=== PATIENT | female | born 1930 | race Caucasian/White ===

== ENCOUNTER 2020-09-18 18:00 | Inpatient (IN) | payer MEDICARE, OTHER ==
[2020-09-18] MEDS ORDERED: Ondansetron 4 MG Tab.DIS PO PRN (18:10)
[2020-09-18] MEDS ORDERED: Sodium Chloride 0.9% 10 ML Syringe FLUSH PRN (18:10)
--- NOTE | 2020-09-18 18:28 | PCM.HP.2 ---
H&P History of Present Illness - General Date of Service: 09/18/20 Admit Problem/Dx: Admission Diagnosis/Problem Admission Diagnosis/Problem Pneumonia, healthcare acquired, Hypoxia, DERRICK, Dehydration, Weakness Source of Information: Longterm Records, Other (KIERA Mckeon attending her) History Limitations: Reports: Altered Mental Status, Respiratory Distress - History of Present Illness Initial Comments - Free Text/Narative: Nikki is a resident of [facility] in [place]. The past couple of days she has become more weak, drowsy, congested to chest. She had an emesis today. She is febrile. Staff are using a [employer] Lift for transfers which is new for her. The residential applied oxygen at 2L/ [place]. Pulse oxy in the clinic is 93%. Nikki is lethargic and not verbal in the clinic. Breathing is labored and rhonchi throughout. Chest x-ray is negative. Leukocytosis WBC 18,000. Creat 1.64, GFR 30, Na 135, K 4.1. Lactic Acid 2.1. Blood cultures pending. Baseline she has Alzheimer's dementia and is quite talkative, essential hypertension, hypothyroidism, GERD, CKD stage IIIa, Iron Def Anemia. Typically she is able to transfer with 1 and uses a wheelchair. She is a Code Level II. She has had 2 doses of covid vaccination. Next of kin, son, Juan Manuel Gerard, was contacted regarding admission and her condition. Onset of Symptoms: Reports: Gradual Symptom Onset Date: 09/17/20 Duration of Symptoms: Reports: Day(s):, Getting Worse Location: Reports: Chest Associated Symptoms: Reports: Cough, Fever/Chills, Loss of Appetite, Malaise, Nausea/Vomiting, Shortness of Breath, Weakness - Related Data Home Medications: Home Meds Acetaminophen [Tylenol] 650 mg PO Q6H PRN 09/18/20 [History] Ergocalciferol (Vitamin D2) [Vitamin D2] 1.25 mg PO DAILY 09/18/20 [History] Escitalopram Oxalate [Lexapro] 10 mg PO DAILY 09/18/20 [History] Lansoprazole [Prevacid] 30 mg PO DAILY 09/18/20 [History] Levothyroxine [Synthroid] 100 mcg PO ACBREAKFAST 09/18/20 [History] amLODIPine Besylate [Amlodipine Besylate] 5 mg PO DAILY 09/18/20 [History] bisacodyL [Bisacodyl] 5 mg PO DAILY PRN 09/18/20 [History] Past Medical History Cardiovascular History: Reports: Hypertension Genitourinary History: Reports: Acute Renal Failure, Chronic Renal Insuffiency Psychiatric History: Reports: Alzheimers Disease, Dementia Endocrine/Metabolic History: Reports: Hypothyroidism, Obesity/BMI 30+, Other (See Below) (hyperlipidemia) Hematologic History: Reports: Anemia, Iron Deficiency Social & Family History - Living Situation & Occupation Living situation: Reports: Occupation: Retired (Next of kin is sonJuan Manuel, (cell). She resides at [facility]) H&P Review of Systems - Review of Systems: Review Of Systems: Unable To Obtain (lethargy) Reason Not Obtained: lethargy Exam - Exam Exam: See Below - Exam Quality Assessment: Supplemental Oxygen General: Moderate Distress, Lethargic. No: Sedated HEENT: Conjunctiva Clear, Hearing Intact, Mucosa Moist & [place], TMs Clear Neck: Supple, Trachea Midline, +2 Carotid Pulse wo Bruit Lungs: Rhonchi Cardiovascular: Regular Rate, Regular Rhythm, Normal S1, Normal S2 GI/Abdominal Exam: Normal Bowel Sounds, Soft, Non-Tender Extremities: Normal Inspection, No Pedal Edema Skin: Warm, Dry Neuro Extensive - Mental Status: Inattentive - Patient Data Lab Results Last 24 hrs: Laboratory Results - last 24 hr 09/18/20 Range/Units 16:54 Lactic Acid 2.1 H* (0.4-2.0) mmol/L - Problem List (1) Pneumonia SNOMED Code(s): 051781903 ICD Code: J18.9 - PNEUMONIA, UNSPECIFIED ORGANISM Status: Acute Current Visit: Yes Qualifiers: Laterality: unspecified laterality (2) Hypoxia SNOMED Code(s): 487208987 ICD Code: R09.02 - HYPOXEMIA Status: Acute Current Visit: Yes (3) DERRICK (acute kidney injury) SNOMED Code(s): 82835588, 98155748 ICD Code: N17.9 - ACUTE KIDNEY FAILURE, UNSPECIFIED Status: Acute Current Visit: Yes (4) Weakness SNOMED Code(s): 96396062 ICD Code: R53.1 - WEAKNESS Status: Acute Current Visit: Yes (5) Lactic acid acidosis SNOMED Code(s): 83137188 ICD Code: E87.2 - ACIDOSIS Status: Acute Current Visit: Yes (6) Dehydration, mild SNOMED Code(s): 5677865008374 ICD Code: E86.0 - DEHYDRATION Status: Acute Current Visit: Yes Problem List Initiated/Reviewed/Updated: Yes Orders Last 24hrs: Active Orders 24 hr Category Date Time Status Patient Status [ADT] Routine ADT 09/18/20 18:10 Ordered Bedrest Bedside Commode [RC] ASDIRECTED Care 09/18/20 18:10 Ordered Dietary Supplements [RC] BIDMEALS Care 09/18/20 18:20 Ordered Height and Weight [RC] DAILY Care 09/18/20 18:10 Ordered Intake and Output [RC] QSHIFT Care 09/18/20 18:13 Ordered Oxygen Therapy [RC] PRN Care 09/18/20 18:10 Ordered Pulse Oximetry [RC] CONTINUOUS Care 09/18/20 18:13 Ordered VTE/DVT Education [RC] PER UNIT ROUTINE Care 09/18/20 18:10 Ordered Vital Signs [RC] Q4H Care 09/18/20 18:10 Ordered OT Evaluation and Treatment [CONS] Routine Cons 09/18/20 18:10 Ordered PT Evaluation and Treatment [CONS] Routine Cons 09/18/20 18:10 Ordered EXTENDED DAY TEACHER Evaluation and Treatment [CONS] Routine Cons 09/18/20 18:10 Ordered Nothing per Oral Now Diet [DIET] Diet 09/18/20 Dinner Ordered Chest 1V Frontal [CR] AM Exams 09/19/20 05:11 Ordered BASIC METABOLIC PANEL,BMP [CHEM] AM Lab 09/19/20 05:11 Ordered CBC WITH AUTO DIFF [HEME] AM Lab 09/19/20 05:11 Ordered CULTURE BLOOD [BC] Stat Lab 09/18/20 18:16 Ordered CULTURE BLOOD [BC] Stat Lab 09/18/20 18:16 Ordered LACTATE SEPSIS W/ REFLEX [CHEM] Routine Lab 09/18/20 20:30 Ordered UA W/MICROSCOPIC [URIN] Stat Lab 09/18/20 18:10 Ordered Acetaminophen [TylenoL] Med 09/18/20 18:10 Ordered 650 mg PO Q4H PRN Ciprofloxacin in D5W [Cipro in D5W 400 MG/200 ML] 400 Med 09/18/20 18:30 Ordered mg Premix Bag 1 bag IV Q12H Heparin Sodium Med 09/18/20 18:15 Ordered 5,000 units SUBCUT Q8H Ondansetron [Zofran ODT] Med 09/18/20 18:10 Ordered 4 mg PO Q4H PRN Piperacillin/Tazobactam [Zosyn] 4.5 gm Med 09/18/20 18:30 Ordered Sodium Chloride 0.9% [Normal Saline] 100 ml IV Q6H Sodium Chloride 0.9% @ 100 MLS/HR(1000ml) Med 09/18/20 18:30 Ordered Sodium Chloride 0.9% [Normal Saline] 1,000 ml IV ASDIRECTED Sodium Chloride 0.9% [Saline Flush] Med 09/18/20 18:10 Ordered 10 ml FLUSH ASDIRECTED PRN VANCOmycin 1.5 GM/300 ML 1.5 gm Med 09/18/20 18:30 Ordered Premix Bag 1 bag IV Q12H Blood Culture x2 Reflex Set [OM.PC] Stat Oth 09/18/20 18:10 Ordered Peripheral IV Insertion Adult [OM.PC] Routine Oth 09/18/20 18:10 Ordered Resuscitation Status Routine Resus Stat 09/18/20 18:10 Ordered Medication Orders Acetaminophen (Acetaminophen 325 Mg Tab) 650 mg PO Q4H PRN PRN Reason: Pain (Mild 1-3)/fever Heparin Sodium (Porcine) (Heparin Sodium 5,000 Units/Ml Vial) 5,000 units SUBCUT Q8H SOTERO Ondansetron HCl (Ondansetron 4 Mg Tab.Dis) 4 mg PO Q4H PRN PRN Reason: nausea, able to take PO Sodium Chloride (Sodium Chloride 0.9% 10 Ml Syringe) 10 ml FLUSH ASDIRECTED PRN PRN Reason: Keep Vein Open Assessment: 1. HCA Pneumonia 2. Hypoxia 3. DERRICK 4. Mild dehydration 5. Lactic Acid acidosis. Plan: She is admitted to Acute Care for HCA pneumonia and she is started on IV Zosyn, Vancomycin, and Cipro. She will get IV fluids for dehydration. Speech Therapy/ PT/ OT to evaluate and treat. Bedside evaluation of swallowing. She is on oxygen at 2L/ nc. We will repeat CXR and lab in the morning. Check lactic acid in [address] Hazel to assume care in morning. DVT prophylaxis of Heparin SQ due to DERRICK. She is a Code Level II. DNR/ DNI. - Mortality Measure Prognosis:: Good
[2020-09-18] MEDS ORDERED: Piperacillin/Tazobactam 4.5 GM in Sodium Chloride 0.9% 100 ML IV SCH (18:30)
[2020-09-18] MEDS ORDERED: VANCOmycin 1.5 GM/300 ML 1.5 GM in Premix Bag 1 BAG IV SCH (18:30)
[2020-09-18] MEDS ORDERED: Ciprofloxacin in D5W 400 MG in Premix Bag 1 BAG IV ONE ×2 (19:15)
[2020-09-18] MEDS ORDERED: Ciprofloxacin in D5W 200 ML ONE (19:37)
[2020-09-18] MEDS: Sodium Chloride 0.9% 1,000 ML IV SCH (19:42)
[2020-09-18] MEDS ORDERED: Bisacodyl 5 MG Tab PO PRN (19:58)
[2020-09-18] MEDS ORDERED: Piperacillin/Tazobactam 4.5 GM in Sodium Chloride 0.9% 100 ML IV ONE ×4 (21:00)
[2020-09-18] MEDS ORDERED: VANCOmycin 1.5 GM/300 ML 1.5 GM in Premix Bag 1 BAG IV ONE (23:00)
[2020-09-19] MEDS ORDERED: VANCOmycin 1.5 GM/300 ML 300 ML IV ONE (00:15)
[2020-09-19] MEDS: Piperacillin/Tazobactam 3.375 GM in Sodium Chloride 0.9% 100 ML IV SCH ×3 (05:27→21:52)
[2020-09-19] MEDS: Acetaminophen 325 MG Tab PO PRN (05:29)
[2020-09-19] MEDS: Pantoprazole 40 MG Tab.CR PO SCH (06:39)
[2020-09-19] MEDS: Levothyroxine 100 MCG Tab PO SCH (06:39)
[2020-09-19 08:04] LABS: ANION GAP 16.8 mmol/L (5-15)
[2020-09-19] MEDS: amLODIPine 5 MG Tab PO SCH (08:13)
[2020-09-19] MEDS: Citalopram 20 MG Tab PO SCH (08:13)
[2020-09-19] MEDS ORDERED: Heparin Sodium 5,000 Units/ML Vial SUBCUT ONE (08:30)
--- NOTE | 2020-09-19 09:08 | PCM.PN ---
- General Info Date of Service: 09/19/20 Admission Dx/Problem (Free Text): Admission Diagnosis/Problem Admission Diagnosis/Problem Pneumonia, healthcare acquired, Hypoxia, DERRICK, Dehydration, Weakness Subjective Update: Nikki Gerard is an 89yoF with a PMH of HTN, hypothyroidism, alzheimers, CKD stage 3, and Fe-def anemia who was admitted to on 09/18/20 for suspected pneumonia. She hadn't been feeling well for a couple days prior to admission and on the day of admission nursing had noted her to be more lethargic, coughing, and having fever. She came into the clinic for an evaluation was found to be quite lethargic, febrile, hypoxic requiring 3 L remaining above 90%, and laboratory evaluation demonstrated leukocytosis with a left shift, and DERRICK (creatinine 1.64 up from baseline of 1.1), and mild hyponatremia. She was admitted to the hospital and was initiated on therapy for healthcare associated pneumonia. Overnight she has remained fairly stable. Vital signs are stable although she did spike a fever back up to 100 this morning. Her labs are improving slightly. She does alert to questioning but does not really answer questions. At baseline this patient is usually happy and very talkative although nonsensically rambles. Nursing did inform that the patient did not pass her swallow study; ST will reassess tomorrow. - Review of Systems Systems Review Comment:: Patient is unable to answer ROS: groggy and will only open eyes, dementia at baseline would make this hard as well. - Patient Data Vitals - Most Recent: Last Vital Signs Temp 100.8 F H 09/19/20 05:45 Pulse 83 09/19/20 05:45 Resp BP 145/55 H 09/19/20 05:45 Pulse Ox 96 09/19/20 08:00 Weight - Most Recent: 164 lb 11 oz I&O - Last 24 Hours: Intake & Output 09/18/20 09/19/20 09/19/20 22:59 06:59 14:59 Intake Total 1600 Balance 1600 Lab Results Last 24 Hours: Laboratory Results - last 24 hr 09/18/20 09/18/20 09/18/20 Range/Units 16:54 20:15 21:01 WBC (4.0-10.0) x10^3/uL RBC (4.00-5.50) x10^6/uL Hgb (12.0-16.0) g/dL Hct (33.0-47.0) % MCV (78.0-93.0) fL MCH (26.0-32.0) pg MCHC (32.0-36.0) g/dL RDW Coeff of Jazmine (10.0-15.0) % Plt Count (130-400) x10^3/uL Add Manual Diff Neutrophils % (Manual) (50-80) % Band Neutrophils % (0-6) % Lymphocytes % (Manual) (25-50) % Monocytes % (Manual) (2-11) % Eosinophils % (Manual) (0-4) % Platelet Estimate Anisocytosis Sodium (136-145) mmol/L Potassium (3.5-5.1) mmol/L Chloride (98-107) mmol/L Carbon Dioxide (21-32) mmol/L Anion Gap (5-15) mmol/L BUN (7-18) mg/dL Creatinine (0.55-1.02) mg/dL Est Cr Clr Drug Dosing mL/min Estimated GFR (MDRD) Glucose (70-99) mg/dL Lactic Acid Cancelled 1.6 Calcium (8.5-10.1) mg/dL Urine Color Dark yellow H (YELLOW) Urine Appearance Slightly cloudy H (CLEAR) Urine pH 5.0 (5.0-8.0) Ur Specific Gilbert >=1.030 Urine Protein >=300 H (NEGATIVE) mg/dL Urine Glucose (UA) Negative (NEGATIVE) mg/dL Urine Ketones Negative (NEGATIVE) mg/dL Urine Occult Blood Trace-intact H (NEGATIVE) Urine Nitrite Negative (NEGATIVE) Urine Bilirubin Negative (NEGATIVE) Urine Urobilinogen 0.2 (0.2) EU/dL Ur Leukocyte Esterase Trace H (NEGATIVE) Urine RBC 5-10 H (NOT SEEN) /HPF Urine WBC 10-20 H (NOT SEEN) /HPF Ur Squamous Epith Cells Few H (NOT SEEN) /HPF Urine Bacteria Moderate H (NOT SEEN) /HPF Urine Mucus Few H (NOT SEEN) /LPF 09/19/20 09/19/20 Range/Units 06:27 06:27 WBC 16.7 H (4.0-10.0) x10^3/uL RBC 3.84 L (4.00-5.50) x10^6/uL Hgb 9.9 L (12.0-16.0) g/dL Hct 31.6 L (33.0-47.0) % MCV 82.3 (78.0-93.0) fL MCH 25.8 L (26.0-32.0) pg MCHC 31.3 L (32.0-36.0) g/dL RDW Coeff of Jazmine 16.6 H (10.0-15.0) % Plt Count 289 (130-400) x10^3/uL Add Manual Diff Yes Neutrophils % (Manual) 79 (50-80) % Band Neutrophils % 2 (0-6) % Lymphocytes % (Manual) 11 L (25-50) % Monocytes % (Manual) 7 (2-11) % Eosinophils % (Manual) 1 (0-4) % Platelet Estimate Adequate Anisocytosis 1+ slight H Sodium 136 (136-145) mmol/L Potassium 3.8 (3.5-5.1) mmol/L Chloride 100 (98-107) mmol/L Carbon Dioxide 23 (21-32) mmol/L Anion Gap 16.8 H (5-15) mmol/L BUN 30 H (7-18) mg/dL Creatinine 1.5 H (0.55-1.02) mg/dL Est Cr Clr Drug Dosing 22.39 mL/min Estimated GFR (MDRD) 33 Glucose 144 H (70-99) mg/dL Lactic Acid Calcium 7.6 L (8.5-10.1) mg/dL Urine Color (YELLOW) Urine Appearance (CLEAR) Urine pH (5.0-8.0) Ur Specific Gilbert Urine Protein (NEGATIVE) mg/dL Urine Glucose (UA) (NEGATIVE) mg/dL Urine Ketones (NEGATIVE) mg/dL Urine Occult Blood (NEGATIVE) Urine Nitrite (NEGATIVE) Urine Bilirubin (NEGATIVE) Urine Urobilinogen (0.2) EU/dL Ur Leukocyte Esterase (NEGATIVE) Urine RBC (NOT SEEN) /HPF Urine WBC (NOT SEEN) /HPF Ur Squamous Epith Cells (NOT SEEN) /HPF Urine Bacteria (NOT SEEN) /HPF Urine Mucus (NOT SEEN) /LPF Med Orders - Current: Current Medications Acetaminophen (Acetaminophen 325 Mg Tab) 650 mg PO Q4H PRN PRN Reason: Pain (Mild 1-3)/fever Amlodipine Besylate (Amlodipine 5 Mg Tab) 5 mg PO DAILY [facility] Last Admin: 09/19/20 08:13 Dose: Not Given Documented by: Bisacodyl (Bisacodyl 5 Mg Tab) 5 mg PO DAILY PRN PRN Reason: Constipation Citalopram Hydrobromide (Citalopram 20 Mg Tab) 20 mg PO DAILY [facility] Last Admin: 09/19/20 08:13 Dose: Not Given Documented by: Ergocalciferol (Ergocalciferol (Vitamin D2) 1.25 Mg Cap) 1.25 mg PO Fr@0800 [facility] Heparin Sodium (Porcine) (Heparin Sodium 5,000 Units/Ml Vial) 5,000 units SUBCUT Q8H SOTERO Sodium Chloride (Normal Saline) 1,000 mls @ 100 mls/hr IV ASDIRECTED [facility] Last Admin: 09/18/20 19:42 Dose: 100 mls/hr Documented by: Ciprofloxacin/Dextrose 400 mg/ (Premix) 200 mls @ 200 mls/hr IV Q12H [facility] Piperacillin Sod/Tazobactam (Sod 3.375 gm/ Sodium Chloride) 100 mls @ 25 mls/hr IV Q8H [facility] Last Admin: 09/19/20 05:27 Dose: 25 mls/hr Documented by: Levothyroxine Sodium (Levothyroxine 100 Mcg Tab) 100 mcg PO ACBREAKFAST [facility] Last Admin: 09/19/20 06:39 Dose: Not Given Documented by: Ondansetron HCl (Ondansetron 4 Mg Tab.Dis) 4 mg PO Q4H PRN PRN Reason: nausea, able to take PO Pantoprazole Sodium (Pantoprazole 40 Mg Tab.Cr) 40 mg PO ACBREAKFAST [facility] Last Admin: 09/19/20 06:39 Dose: Not Given Documented by: Sodium Chloride (Sodium Chloride 0.9% 10 Ml Syringe) 10 ml FLUSH ASDIRECTED PRN PRN Reason: Keep Vein Open Vancomycin HCl (Pharmacy To Dose - Vancomycin) 1 dose .XX ASDIRECTED [facility] Discontinued Medications Heparin Sodium (Porcine) (Heparin Sodium 5,000 Units/Ml Vial) 5,000 units SUBCUT ONETIME ONE Stop: 09/19/20 08:31 Piperacillin Sod/Tazobactam (Sod 4.5 gm/ Sodium Chloride) 100 mls @ 200 mls/hr IV Q6H [facility] Last Admin: 09/18/20 23:58 Dose: Not Given Documented by: Ciprofloxacin/Dextrose 400 mg/ (Premix) 200 mls @ 200 mls/hr IV ONETIME ONE Stop: 09/18/20 20:14 Last Admin: 09/18/20 19:42 Dose: 200 mls/hr Documented by: Ciprofloxacin/Dextrose (Cipro In D5w 400 Mg/200 Ml) Confirm Administered Dose 200 mls @ as directed .ROUTE .STK-MED ONE Stop: 09/18/20 19:38 Last Admin: 09/18/20 20:43 Dose: Not Given Documented by: Piperacillin Sod/Tazobactam (Sod 4.5 gm/ Sodium Chloride) 100 mls @ 25 mls/hr IV ONETIME ONE Stop: 09/19/20 00:59 Piperacillin Sod/Tazobactam (Sod 4.5 gm/ Sodium Chloride) 100 mls @ 200 mls/hr IV ONETIME ONE Stop: 09/18/20 21:29 Last Admin: 09/18/20 21:56 Dose: 200 mls/hr Documented by: Vancomycin HCl 1.5 gm/ Premix 300 mls @ 200 mls/hr IV ONETIME ONE Stop: 09/19/20 00:29 Last Admin: 09/18/20 23:51 Dose: 200 mls/hr Documented by: Vancomycin HCl (Vancomycin 1.5 Gm/300 Ml) 300 mls @ 200 mls/hr IV ONETIME ONE Stop: 09/19/20 01:44 Last Admin: 09/19/20 00:13 Dose: 200 mls/hr Documented by: - Exam Quality Assessment: Supplemental Oxygen (2L with sats at 97%) General: No Acute Distress, Lethargic HEENT: Mucous Membr. Moist/[place] Neck: Supple Lungs: Rhonchi (may be transmitted upper airway sounds) Cardiovascular: Regular Rate, Regular Rhythm GI/Abdominal Exam: Normal Bowel Sounds, Soft, Non-Tender Extremities: Normal Inspection, Non-Tender, No Pedal Edema Skin: Warm, Dry, Intact - Patient Data Lab Results Last 24 hrs: Laboratory Results - last 24 hr 09/18/20 09/18/20 09/18/20 Range/Units 16:54 20:15 21:01 WBC (4.0-10.0) x10^3/uL RBC (4.00-5.50) x10^6/uL Hgb (12.0-16.0) g/dL Hct (33.0-47.0) % MCV (78.0-93.0) fL MCH (26.0-32.0) pg MCHC (32.0-36.0) g/dL RDW Coeff of Jazmine (10.0-15.0) % Plt Count (130-400) x10^3/uL Add Manual Diff Neutrophils % (Manual) (50-80) % Band Neutrophils % (0-6) % Lymphocytes % (Manual) (25-50) % Monocytes % (Manual) (2-11) % Eosinophils % (Manual) (0-4) % Platelet Estimate Anisocytosis Sodium (136-145) mmol/L Potassium (3.5-5.1) mmol/L Chloride (98-107) mmol/L Carbon Dioxide (21-32) mmol/L Anion Gap (5-15) mmol/L BUN (7-18) mg/dL Creatinine (0.55-1.02) mg/dL Est Cr Clr Drug Dosing mL/min Estimated GFR (MDRD) Glucose (70-99) mg/dL Lactic Acid Cancelled 1.6 Calcium (8.5-10.1) mg/dL Urine Color Dark yellow H (YELLOW) Urine Appearance Slightly cloudy H (CLEAR) Urine pH 5.0 (5.0-8.0) Ur Specific Gilbert >=1.030 Urine Protein >=300 H (NEGATIVE) mg/dL Urine Glucose (UA) Negative (NEGATIVE) mg/dL Urine Ketones Negative (NEGATIVE) mg/dL Urine Occult Blood Trace-intact H (NEGATIVE) Urine Nitrite Negative (NEGATIVE) Urine Bilirubin Negative (NEGATIVE) Urine Urobilinogen 0.2 (0.2) EU/dL Ur Leukocyte Esterase Trace H (NEGATIVE) Urine RBC 5-10 H (NOT SEEN) /HPF Urine WBC 10-20 H (NOT SEEN) /HPF Ur Squamous Epith Cells Few H (NOT SEEN) /HPF Urine Bacteria Moderate H (NOT SEEN) /HPF Urine Mucus Few H (NOT SEEN) /LPF 09/19/20 09/19/20 Range/Units 06:27 06:27 WBC 16.7 H (4.0-10.0) x10^3/uL RBC 3.84 L (4.00-5.50) x10^6/uL Hgb 9.9 L (12.0-16.0) g/dL Hct 31.6 L (33.0-47.0) % MCV 82.3 (78.0-93.0) fL MCH 25.8 L (26.0-32.0) pg MCHC 31.3 L (32.0-36.0) g/dL RDW Coeff of Jazmine 16.6 H (10.0-15.0) % Plt Count 289 (130-400) x10^3/uL Add Manual Diff Yes Neutrophils % (Manual) 79 (50-80) % Band Neutrophils % 2 (0-6) % Lymphocytes % (Manual) 11 L (25-50) % Monocytes % (Manual) 7 (2-11) % Eosinophils % (Manual) 1 (0-4) % Platelet Estimate Adequate Anisocytosis 1+ slight H Sodium 136 (136-145) mmol/L Potassium 3.8 (3.5-5.1) mmol/L Chloride 100 (98-107) mmol/L Carbon Dioxide 23 (21-32) mmol/L Anion Gap 16.8 H (5-15) mmol/L BUN 30 H (7-18) mg/dL Creatinine 1.5 H (0.55-1.02) mg/dL Est Cr Clr Drug Dosing 22.39 mL/min Estimated GFR (MDRD) 33 Glucose 144 H (70-99) mg/dL Lactic Acid Calcium 7.6 L (8.5-10.1) mg/dL Urine Color (YELLOW) Urine Appearance (CLEAR) Urine pH (5.0-8.0) Ur Specific Gilbert Urine Protein (NEGATIVE) mg/dL Urine Glucose (UA) (NEGATIVE) mg/dL Urine Ketones (NEGATIVE) mg/dL Urine Occult Blood (NEGATIVE) Urine Nitrite (NEGATIVE) Urine Bilirubin (NEGATIVE) Urine Urobilinogen (0.2) EU/dL Ur Leukocyte Esterase (NEGATIVE) Urine RBC (NOT SEEN) /HPF Urine WBC (NOT SEEN) /HPF Ur Squamous Epith Cells (NOT SEEN) /HPF Urine Bacteria (NOT SEEN) /HPF Urine Mucus (NOT SEEN) /LPF Result Diagrams: 09/19/20 06:27 09/19/20 06:27 Sepsis Event Note - Evaluation Sepsis Screening Result: No Definite Risk - Focused Exam Vital Signs: Vital Signs Temp Pulse BP Pulse Ox Pulse Ox 09/19/20 08:00 96 09/19/20 05:45 100.8 F H 83 145/55 H 95 09/19/20 02:00 97.4 F 87 141/56 H 93 L 09/18/20 23:57 95 09/18/20 22:00 98.2 F 86 145/66 H 91 L 09/18/20 21:49 95 - Problem List & Annotations (1) Pneumonia SNOMED Code(s): 639900628 Code(s): J18.9 - PNEUMONIA, UNSPECIFIED ORGANISM Status: Acute Current Visit: Yes Qualifiers: Laterality: unspecified laterality (2) Hypoxia SNOMED Code(s): 824638703 Code(s): R09.02 - HYPOXEMIA Status: Acute Current Visit: Yes (3) DERRICK (acute kidney injury) SNOMED Code(s): 79578171, 78025032 Code(s): N17.9 - ACUTE KIDNEY FAILURE, UNSPECIFIED Status: Acute Current Visit: Yes (4) Weakness SNOMED Code(s): 96533652 Code(s): R53.1 - WEAKNESS Status: Acute Current Visit: Yes - Problem List Review Problem List Initiated/Reviewed/Updated: Yes - My Orders Last 24 Hours: My Active Orders 09/18/20 19:58 bisacodyL [Dulcolax] 5 mg PO DAILY PRN 09/18/20 20:18 CULTURE MRSA SURVEY [RM] Routine 09/19/20 07:00 Levothyroxine [Synthroid] 100 mcg PO ACBREAKFAST Pantoprazole [ProTONIX] 40 mg PO ACBREAKFAST 09/19/20 08:00 Citalopram [Celexa] 20 mg PO DAILY amLODIPine [Norvasc] 5 mg PO DAILY 09/19/20 08:40 PROCALCITONIN [REF] Urgent 09/20/20 06:00 BASIC METABOLIC PANEL,BMP [CHEM] Routine CBC WITH AUTO DIFF [HEME] Routine 09/22/20 08:00 Ergocalciferol (Vitamin D2) [Vitamin D2] 1.25 mg PO Fr@0800 - Plan Plan:: Selena Gerard is an 89yoF who is HD #2 for treatment of pneumonia (health-care associated, possible aspiration). Pneumonia - HCA vs aspiration - Patient quite lethargic at this time - Nursing had reported some bouts of emesis prior to cough/rhonchi in lungs Plan: - Continue triple therapy for now: Vanco+Zosyn+Cipro - Procalcitonin today - Blood cultures pending - ST: NPO for now, will readdress daily - Will deescalate as indicated - Repeat CBC in the am - Supplemental O2 as needed to keep sats >90%, continuous pulse ox UTI - Urinalysis with signs of UTI Plan: - Patient should be covered by Cipro and Vanco - Will deescalate as indicated DERRICK on CKDs3 - Cr 1.6 on admit, slight improvement today Plan: - Continue IVF @ 100mL/hr (just above maintenance) - Repeat BMP in the am Weakness/Deconditioning - Patient is romero/wheelchair with assist of 2 at baseline Plan: - PT/OT ordered Hyponatremia, mild - resolved Chronic: - HTN: continue home Norvasc 5mg daily - Hypothyroidism: continue levothyroxine 100mcg daily - GERD: continue prevacid 30mg daily - Mood: continue lexapro 10mg daily Diet: NPO until cleared by ST DVT: Heparin SQ daily (INR ordered) CODE: DNR/DNI Disposition: Guarded. patient will remain acute cares for continued treatment of the above. Anticipate another handful of days of antibiotics until patient is improved enough to return to [facility].
--- NOTE | 2020-09-19 12:15 | CR ---
[id number] RAD/RAD Chest PA or AP 1V EXAM: RAD Chest PA or AP 1V INDICATION: PNEUMONIA. COMPARISON: None available. DISCUSSION: Cardiomediastinal silhouette is stable in size and contour. No infiltrate, effusion, pneumothorax, or edema. Pulmonary hyperinflation. IMPRESSION: No acute cardiopulmonary abnormality. Miguel Dorsey DO 09/19/20 [id number] Thank you for allowing us to participate in the care of your patient.
--- NOTE | 2020-09-19 16:57 | PCM.SN.2 ---
- Free Text/Narrative Note: Spoke with the nurse it has concerned about patient's continued altered mental status. She is also questioning if maybe there are less smile lines on patient's right side of her face. Also wondering about maybe some slurred speech. Patient is very demented at baseline. Would currently follow man's while well. We will get a CT of her head nonetheless to rule out any other acute process that we be be missing.
[2020-09-19] MEDS ORDERED: Iopamidol 612 MG/ML 100 ML Bottle IVPUSH ONE (17:44)
[2020-09-19] MEDS ORDERED: Ciprofloxacin in D5W 400 MG in Premix Bag 1 BAG IV SCH ×2 (18:00)
--- NOTE | 2020-09-19 19:30 | CT ---
[id number] CT/CTA Head EXAM: CTA Head CLINICAL DATA: ALTERED MENTAL STATUS. COMPARISON STUDY: None FINDINGS: No intracranial hemorrhage, extra-axial fluid collection, mass, or acute ischemia. Generalized parenchymal atrophy with scattered areas of nonspecific white matter disease, commonly seen as sequela of chronic microvascular ischemia. 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 Soft tissues are unremarkable. Mucosal thickening in the paranasal sinuses without evidence of aggressive sinusitis. The mastoid air cells are well aerated and clear. The intracranial portion of the internal carotid arteries demonstrate scattered atherosclerotic calcifications without significant stenosis or occlusion. There is a short segment greater than 70% stenosis involving the left M1 segment. The right middle cerebral artery is patent without significant stenosis or occlusion. The anterior and posterior cerebral arteries are symmetric without significant stenosis or occlusion. IMPRESSION: 1. Short segment greater than 70% stenosis involving the left M1 segment. Findings discussed with ordering provider at time of dictation. Miguel Dorsey DO 09/19/20 [id number] Thank you for allowing us to participate in the care of your patient.
[2020-09-19] MEDS ORDERED: VANCOmycin 1.25 GM/250 ML 250 ML IV SCH (22:00)
[2020-09-20] MEDS: Piperacillin/Tazobactam 3.375 GM in Sodium Chloride 0.9% 100 ML IV SCH ×3 (05:53→21:06)
[2020-09-20] MEDS: Pantoprazole 40 MG Tab.CR PO SCH (06:38)
[2020-09-20] MEDS: Levothyroxine 100 MCG Tab PO SCH (06:38)
[2020-09-20 07:09] LABS: ANION GAP 14.7 mmol/L (5-15)
--- NOTE | 2020-09-20 08:45 | PCM.PN ---
- General Info Date of Service: 09/20/20 Admission Dx/Problem (Free Text): Admission Diagnosis/Problem Admission Diagnosis/Problem Pneumonia, healthcare acquired, Hypoxia, DERRICK, Dehydration, Weakness Subjective Update: Nikki Gerard is an 89yoF with a PMH of HTN, hypothyroidism, alzheimers, CKD stage 3, and Fe-def anemia who was admitted to on 09/18/20 for suspected pneumonia. She hadn't been feeling well for a couple days prior to admission and on the day of admission nursing had noted her to be more lethargic, coughing, and having fever. She came into the clinic for an evaluation was found to be quite lethargic, febrile, hypoxic requiring 3 L remaining above 90%, and laboratory evaluation demonstrated leukocytosis with a left shift, and DERRICK (creatinine 1.64 up from baseline of 1.1), and mild hyponatremia. She was admitted to the hospital and was initiated on therapy for healthcare associated pneumonia. Overnight the patient's status has improved quite a bit. She is now alerting for staff and responding with her baseline repetative jibberish. Vitals are improving as are her labs. 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 - Review of Systems Systems Review Comment:: Patient is unable to answer ROS questions: dementia - Patient Data Vitals - Most Recent: Last Vital Signs Temp 99.6 F 09/20/20 05:58 Pulse 68 09/20/20 05:58 Resp 20 09/20/20 05:58 BP 118/41 L 09/20/20 05:58 Pulse Ox 97 09/20/20 07:50 Weight - Most Recent: 167 lb 8 oz I&O - Last 24 Hours: Intake & Output 09/19/20 09/20/20 09/20/20 22:59 06:59 14:59 Intake Total 2900 825 Balance 2900 825 Lab Results Last 24 Hours: Laboratory Results - last 24 hr 09/19/20 09/19/20 09/20/20 Range/Units 09:10 09:10 06:47 WBC 11.5 H (4.0-10.0) x10^3/uL RBC 3.55 L (4.00-5.50) x10^6/uL Hgb 9.2 L (12.0-16.0) g/dL Hct 29.5 L (33.0-47.0) % MCV 83.1 (78.0-93.0) fL MCH 25.9 L (26.0-32.0) pg MCHC 31.2 L (32.0-36.0) g/dL RDW Coeff of Jazmine 16.5 H (10.0-15.0) % Plt Count 258 (130-400) x10^3/uL Neut % (Auto) 76.5 (50.0-80.0) % Lymph % (Auto) 12.3 L (25.0-50.0) % [place] % (Auto) 8.6 (2.0-11.0) % Eos % (Auto) 2.2 (0.0-4.0) % Baso % (Auto) 0.4 (0.2-1.2) % PT 10.8 (9.9-12.5) SEC INR 1.0 L (2.0-3.5) Sodium (136-145) mmol/L Potassium (3.5-5.1) mmol/L Chloride (98-107) mmol/L Carbon Dioxide (21-32) mmol/L Anion Gap (5-15) mmol/L BUN (7-18) mg/dL Creatinine (0.55-1.02) mg/dL Est Cr Clr Drug Dosing mL/min Estimated GFR (MDRD) Glucose (70-99) mg/dL Calcium (8.5-10.1) mg/dL Procalcitonin 0.31 H ng/mL 09/20/20 Range/Units 06:47 WBC (4.0-10.0) x10^3/uL RBC (4.00-5.50) x10^6/uL Hgb (12.0-16.0) g/dL Hct (33.0-47.0) % MCV (78.0-93.0) fL MCH (26.0-32.0) pg MCHC (32.0-36.0) g/dL RDW Coeff of Jazmine (10.0-15.0) % Plt Count (130-400) x10^3/uL Neut % (Auto) (50.0-80.0) % Lymph % (Auto) (25.0-50.0) % [place] % (Auto) (2.0-11.0) % Eos % (Auto) (0.0-4.0) % Baso % (Auto) (0.2-1.2) % PT (9.9-12.5) SEC INR (2.0-3.5) Sodium 140 (136-145) mmol/L Potassium 3.7 (3.5-5.1) mmol/L Chloride 105 (98-107) mmol/L Carbon Dioxide 24 (21-32) mmol/L Anion Gap 14.7 (5-15) mmol/L BUN 25 H (7-18) mg/dL Creatinine 1.4 H (0.55-1.02) mg/dL Est Cr Clr Drug Dosing 23.99 mL/min Estimated GFR (MDRD) 35 Glucose 119 H (70-99) mg/dL Calcium 7.4 L (8.5-10.1) mg/dL Procalcitonin ng/mL Mazin Results Last 24 Hours: Microbiology 09/18/20 21:01 Urine Culture - Preliminary Urine, Catheterized NO GROWTH AFTER 1 DAY 09/18/20 20:20 Aerobic Blood Culture - Preliminary Blood - Venous - Lab Draw NO GROWTH AFTER 1 DAY Anaerobic Blood Culture - Preliminary NO GROWTH AFTER 1 DAY 09/18/20 20:15 Aerobic Blood Culture - Preliminary Blood - Venous NO GROWTH AFTER 1 DAY Anaerobic Blood Culture - Preliminary NO GROWTH AFTER 1 DAY 09/18/20 20:18 MRSA Surveillance Culture - Final Nares, Unspecified NO MRSA ISOLATED Med Orders - Current: Current Medications Acetaminophen (Acetaminophen 325 Mg Tab) 650 mg PO Q4H PRN PRN Reason: Pain (Mild 1-3)/fever Amlodipine Besylate (Amlodipine 5 Mg Tab) 5 mg PO DAILY [facility] Last Admin: 09/19/20 08:13 Dose: Not Given Documented by: Bisacodyl (Bisacodyl 5 Mg Tab) 5 mg PO DAILY PRN PRN Reason: Constipation Citalopram Hydrobromide (Citalopram 20 Mg Tab) 20 mg PO DAILY [facility] Last Admin: 09/19/20 08:13 Dose: Not Given Documented by: Ergocalciferol (Ergocalciferol (Vitamin D2) 1.25 Mg Cap) 1.25 mg PO Fr@0800 [facility] Heparin Sodium (Porcine) (Heparin Sodium 5,000 Units/Ml Vial) 5,000 units SUBCUT Q8H [facility] Sodium Chloride (Normal Saline) 1,000 mls @ 100 mls/hr IV ASDIRECTED [facility] Last Admin: 09/18/20 19:42 Dose: 100 mls/hr Documented by: Ciprofloxacin/Dextrose 400 mg/ (Premix) 200 mls @ 200 mls/hr IV Q24H [facility] Last Admin: 09/19/20 17:29 Dose: 200 mls/hr Documented by: Piperacillin Sod/Tazobactam (Sod 3.375 gm/ Sodium Chloride) 100 mls @ 25 mls/hr IV Q8H [facility] Last Admin: 09/20/20 05:53 Dose: 25 mls/hr Documented by: Vancomycin HCl 750 mg/ Sodium (Chloride) 100 mls @ 130 mls/hr IV Q24H [facility] Last Admin: 09/19/20 19:32 Dose: 130 mls/hr Documented by: Levothyroxine Sodium (Levothyroxine 100 Mcg Tab) [facility] Last Admin: 09/20/20 06:38 Dose: Not Given Documented by: Ondansetron HCl (Ondansetron 4 Mg Tab.Dis) 4 mg PO Q4H PRN PRN Reason: nausea, able to take PO Pantoprazole Sodium (Pantoprazole 40 Mg Tab.Cr) 40 [facility] Last Admin: 09/20/20 06:38 Dose: Not Given Documented by: Sodium Chloride (Sodium Chloride 0.9% 10 Ml Syringe) 10 ml FLUSH ASDIRECTED PRN PRN Reason: Keep Vein Open Vancomycin HCl (Pharmacy To Dose - Vancomycin) 1 dose .XX ASDIRECTED [facility] Discontinued Medications Heparin Sodium (Porcine) (Heparin Sodium 5,000 Units/Ml Vial) 5,000 units SUBCUT ONETIME ONE Stop: 09/19/20 08:31 Last Admin: 09/19/20 09:55 Dose: 5,000 units Documented by: Piperacillin Sod/Tazobactam (Sod 4.5 gm/ Sodium Chloride) 100 mls @ 200 mls/hr IV Q6H [facility] Last Admin: 09/18/20 23:58 Dose: Not Given Documented by: Ciprofloxacin/Dextrose 400 mg/ (Premix) 200 mls @ 200 mls/hr IV ONETIME ONE Stop: 09/18/20 20:14 Last Admin: 09/18/20 19:42 Dose: 200 mls/hr Documented by: Ciprofloxacin/Dextrose (Cipro In D5w 400 Mg/200 Ml) Confirm Administered Dose 200 mls @ as directed .ROUTE .STK-MED ONE Stop: 09/18/20 19:38 Last Admin: 09/18/20 20:43 Dose: Not Given Documented by: Piperacillin Sod/Tazobactam (Sod 4.5 gm/ Sodium Chloride) 100 mls @ 25 mls/hr IV ONETIME ONE Stop: 09/19/20 00:59 Piperacillin Sod/Tazobactam (Sod 4.5 gm/ Sodium Chloride) 100 mls @ 200 mls/hr IV ONETIME ONE Stop: 09/18/20 21:29 Last Admin: 09/18/20 21:56 Dose: 200 mls/hr Documented by: Vancomycin HCl 1.5 gm/ Premix 300 mls @ 200 mls/hr IV ONETIME ONE Stop: 09/19/20 00:29 Last Admin: 09/18/20 23:51 Dose: 200 mls/hr Documented by: Vancomycin HCl (Vancomycin 1.5 Gm/300 Ml) 300 mls @ 200 mls/hr IV ONETIME ONE Stop: 09/19/20 01:44 Last Admin: 09/19/20 00:13 Dose: 200 mls/hr Documented by: Iopamidol (Iopamidol 612 Mg/Ml 100 Ml Bottle) 100 ml IVPUSH ONETIME ONE Stop: 09/19/20 17:45 Last Admin: 09/19/20 18:41 Dose: 100 ml Documented by: - Exam Quality Assessment: Supplemental Oxygen (1L with sats in the mid-90s) General: Alert, Cooperative, No Acute Distress HEENT: EOMI, Other (mucous membranes pink but dry) Neck: Supple Lungs: Normal Respiratory Effort, Other (transmitted upper airway sounds) Cardiovascular: Regular Rate, Regular Rhythm GI/Abdominal Exam: Normal Bowel Sounds, Soft, Non-Tender Extremities: Normal Inspection, No Pedal Edema Skin: Warm, Dry, Intact Neurological: No New Focal Deficit Psy/Mental Status: Alert, Normal Affect, Normal Mood, Other (patient is back towards her baseline mental status this morning) - Patient Data Lab Results Last 24 hrs: Laboratory Results - last 24 hr 09/19/20 09/19/20 09/20/20 Range/Units 09:10 09:10 06:47 WBC 11.5 H (4.0-10.0) x10^3/uL RBC 3.55 L (4.00-5.50) x10^6/uL Hgb 9.2 L (12.0-16.0) g/dL Hct 29.5 L (33.0-47.0) % MCV 83.1 (78.0-93.0) fL MCH 25.9 L (26.0-32.0) pg MCHC 31.2 L (32.0-36.0) g/dL RDW Coeff of Jazmine 16.5 H (10.0-15.0) % Plt Count 258 (130-400) x10^3/uL Neut % (Auto) 76.5 (50.0-80.0) % Lymph % (Auto) 12.3 L (25.0-50.0) % [place] % (Auto) 8.6 (2.0-11.0) % Eos % (Auto) 2.2 (0.0-4.0) % Baso % (Auto) 0.4 (0.2-1.2) % PT 10.8 (9.9-12.5) SEC INR 1.0 L (2.0-3.5) Sodium (136-145) mmol/L Potassium (3.5-5.1) mmol/L Chloride (98-107) mmol/L Carbon Dioxide (21-32) mmol/L Anion Gap (5-15) mmol/L BUN (7-18) mg/dL Creatinine (0.55-1.02) mg/dL Est Cr Clr Drug Dosing mL/min Estimated GFR (MDRD) Glucose (70-99) mg/dL Calcium (8.5-10.1) mg/dL Procalcitonin 0.31 H ng/mL 09/20/20 Range/Units 06:47 WBC (4.0-10.0) x10^3/uL RBC (4.00-5.50) x10^6/uL Hgb (12.0-16.0) g/dL Hct (33.0-47.0) % MCV (78.0-93.0) fL MCH (26.0-32.0) pg MCHC (32.0-36.0) g/dL RDW Coeff of Jazmine (10.0-15.0) % Plt Count (130-400) x10^3/uL Neut % (Auto) (50.0-80.0) % Lymph % (Auto) (25.0-50.0) % [place] % (Auto) (2.0-11.0) % Eos % (Auto) (0.0-4.0) % Baso % (Auto) (0.2-1.2) % PT (9.9-12.5) SEC INR (2.0-3.5) Sodium 140 (136-145) mmol/L Potassium 3.7 (3.5-5.1) mmol/L Chloride 105 (98-107) mmol/L Carbon Dioxide 24 (21-32) mmol/L Anion Gap 14.7 (5-15) mmol/L BUN 25 H (7-18) mg/dL Creatinine 1.4 H (0.55-1.02) mg/dL Est Cr Clr Drug Dosing 23.99 mL/min Estimated GFR (MDRD) 35 Glucose 119 H (70-99) mg/dL Calcium 7.4 L (8.5-10.1) mg/dL Procalcitonin ng/mL Result Diagrams: 09/20/20 06:47 09/20/20 06:47 Mazin Results Last 24 hrs: Microbiology 09/18/20 21:01 Urine Culture - Preliminary Urine, Catheterized NO GROWTH AFTER 1 DAY 09/18/20 20:20 Aerobic Blood Culture - Preliminary Blood - Venous - Lab Draw NO GROWTH AFTER 1 DAY Anaerobic Blood Culture - Preliminary NO GROWTH AFTER 1 DAY 09/18/20 20:15 Aerobic Blood Culture - Preliminary Blood - Venous NO GROWTH AFTER 1 DAY Anaerobic Blood Culture - Preliminary NO GROWTH AFTER 1 DAY 09/18/20 20:18 MRSA Surveillance Culture - Final Nares, Unspecified NO MRSA ISOLATED Sepsis Event Note - Evaluation Sepsis Screening Result: No Definite Risk - Focused Exam Vital Signs: Vital Signs Temp Pulse Resp BP Pulse Ox Pulse Ox 09/20/20 07:50 97 09/20/20 06:00 97 09/20/20 05:58 99.6 F 68 20 118/41 L 97 09/20/20 02:43 98 09/20/20 02:00 99.1 F 70 20 132/51 L 98 09/19/20 22:03 97 09/19/20 22:01 99.4 F 78 20 123/41 L 97 09/19/20 21:20 95 - Problem List & Annotations (1) UTI (urinary tract infection) SNOMED Code(s): 52000372 Code(s): N39.0 - URINARY TRACT INFECTION, SITE NOT SPECIFIED Status: Acute Current Visit: Yes (2) Pneumonia SNOMED Code(s): 230664264 Code(s): J18.9 - PNEUMONIA, UNSPECIFIED ORGANISM Status: Suspected Current Visit: Yes Qualifiers: Laterality: unspecified laterality (3) Hypoxia SNOMED Code(s): 795993438 Code(s): R09.02 - HYPOXEMIA Status: Acute Current Visit: Yes (4) DERRICK (acute kidney injury) SNOMED Code(s): 49571034, 96335133 Code(s): N17.9 - ACUTE KIDNEY FAILURE, UNSPECIFIED Status: Acute Current Visit: Yes (5) Weakness SNOMED Code(s): 79082555 Code(s): R53.1 - WEAKNESS Status: Acute Current Visit: Yes - Problem List Review Problem List Initiated/Reviewed/Updated: Yes - My Orders Last 24 Hours: My Active Orders 09/19/20 08:00 Citalopram [Celexa] 20 mg PO DAILY amLODIPine [Norvasc] 5 mg PO DAILY 09/19/20 09:19 CULTURE URINE [RM] Routine 09/19/20 18:00 Ciprofloxacin in D5W [Cipro in D5W 400 MG/200 ML] 400 mg Premix Bag 1 bag IV Q24H 09/19/20 19:00 Vancomycin 750 mg Sodium Chloride 0.9% [Normal Saline] 100 ml IV Q24H 09/21/20 18:00 VANCOMYCIN TROUGH [CHEM] Timed 09/22/20 08:00 Ergocalciferol (Vitamin D2) [Vitamin D2] 1.25 mg PO Fr@0800 - Plan Plan:: Selena Gerard is an 89yoF who is HD #3 for treatment of altered mental status, hypoxia, ? pneumonia (health-care associated, possible aspiration), UTI, and DERRICK. UTI - Urinalysis with signs of UTI - After further review I do believe this is likely the cause of her abrupt decli ne - Patient's mental status and labs improving Plan: - Awaiting urine and blood cultures - Will deescalate antibiotics - Will switch to zosyn alone for the time being (patient is [facility] resident, possibility of MDR organisms) - Repeat CBC in the am Hypoxia, previously though to be 2/2 Pneumonia (HCA vs aspiration) - Patient quite lethargic at time of presentation with cough and rhonchi - Nursing had reported some bouts of emesis prior to cough/rhonchi in lungs days prior to admit - At this time with 2 negative CXR's and concurrent UTI I am lead to believe that her respiratory decline is less likely due to a pneumonia but more secondar y to systemic illness from the UTI - Lungs relatively clear except for transmitted upper airway sounds - Procal was low, WBC and vitals improving Plan: - Will deescalate antibiotic therapy at this time to cover solely for UTI - Blood cultures pending - ST: NPO for now, will readdress daily - Supplemental O2 as needed to keep sats >90%, continuous pulse ox DERRICK on CKDs3, improved - Cr improving Plan: - Continue IVF @ 100mL/hr (just above maintenance) - Repeat BMP in the am Weakness/Deconditioning - Patient is romero/wheelchair with assist of 2 at baseline Plan: - PT/OT ordered Hyponatremia, mild - resolved Chronic: - HTN: continue home Norvasc 5mg daily - Hypothyroidism: continue levothyroxine 100mcg daily - GERD: continue prevacid 30mg daily - Mood: continue lexapro 10mg daily Diet: NPO until cleared by ST DVT: Heparin SQ daily (INR ordered) CODE: DNR/DNI Disposition: Improved. Anticipate 24-48 hours more of inpatient stay for IV antibiotics and monitoring of clinical status.
[2020-09-20] MEDS: Citalopram 20 MG Tab PO SCH (08:53)
[2020-09-20] MEDS: amLODIPine 5 MG Tab PO SCH (08:53)
[2020-09-20] MEDS: Sodium Chloride 0.9% 1,000 ML IV SCH (09:38)
[2020-09-20] MEDS: Heparin Sodium 5,000 Units/ML Vial SUBCUT SCH ×2 (13:00→21:06)
[2020-09-20] MEDS: Acetaminophen 325 MG Tab PO PRN (20:03)
[2020-09-21] MEDS: Pantoprazole 40 MG Tab.CR PO SCH (06:06)
[2020-09-21] MEDS: Piperacillin/Tazobactam 3.375 GM in Sodium Chloride 0.9% 100 ML IV SCH (06:06)
[2020-09-21] MEDS: Levothyroxine 100 MCG Tab PO SCH (06:06)
[2020-09-21] MEDS: Heparin Sodium 5,000 Units/ML Vial SUBCUT SCH (06:06)
[2020-09-21] MEDS: Sodium Chloride 0.9% 1,000 ML IV SCH (06:09)
[2020-09-21 07:58] LABS: ANION GAP 14.5 mmol/L (5-15)
[2020-09-21] MEDS: amLODIPine 5 MG Tab PO SCH (08:10)
[2020-09-21] MEDS: Citalopram 20 MG Tab PO SCH (08:10)
--- NOTE | 2020-09-21 08:51 | PCM.DCSUM1 ---
Discharge Summary - Hospital Course Free Text/Narrative:: Nikki Gerard is an 89yoF long term patient with a PMH of HTN, hypothyroidism, alzheimers, CKD stage 3, and Fe-def anemia who was admitted to [facility] on 09/18/20 for suspected pneumonia. She hadn't been feeling well for a couple days prior to admission and on the day of admission nursing had noted her to be more lethargic, coughing, and running a fever. She came into the clinic for an evaluation was found to be quite lethargic, febrile, hypoxic requiring 3 L to remain above 90%, and laboratory evaluation demonstrated leukocytosis with a left shift, and DERRICK (creatinine 1.64 up from baseline of 1.1), and mild hyponatremia. She was admitted to the hospital and was initiated on therapy for healthcare associated pneumonia. Urinalysis did return positive for UTI, grew out typical gram negative faisal. Blood cultures remained negative (48hr). Xrays actually did not demonstrate any consolidation and patient's O2 status improved with improved cognition. She was deescalated to zosyn alone for treatment of UTI in a NH patient. By day 4 patient was back to her baseline. She has been fever free for 24 hours and vitals and labs are improved. She is thought to be ready to discharge back to the long term. Will discharge her with 3 more days of Cipro 500mg BID for 3 more days (total of 7 days of antimicrobial therapy). - Discharge Data Discharge Date: 09/21/20 Discharge Disposition: DC/Tfer to SNF 03 Condition: Good - Referral to Home Health Primary Care Physician: Dasha Hazel MD - Discharge Diagnosis/Problem(s) (1) UTI (urinary tract infection) SNOMED Code(s): 15063904 ICD Code: N39.0 - URINARY TRACT INFECTION, SITE NOT SPECIFIED Status: Acute Current Visit: Yes (2) Hypoxia SNOMED Code(s): 193374177 ICD Code: R09.02 - HYPOXEMIA Status: Acute Current Visit: Yes (3) DERRICK (acute kidney injury) SNOMED Code(s): 28340951, 12027690 ICD Code: N17.9 - ACUTE KIDNEY FAILURE, UNSPECIFIED Status: Acute Current Visit: Yes (4) Weakness SNOMED Code(s): 61043449 ICD Code: R53.1 - WEAKNESS Status: Acute Current Visit: Yes - Patient Summary/Data Consults: Consultations 09/18/20 18:10 OT Evaluation and Treatment [CONS] Routine PT Evaluation and Treatment [CONS] Routine LIBRARY AIDE Evaluation and Treatment [CONS] Routine - Discharge Plan *PRESCRIPTION DRUG MONITORING PROGRAM REVIEWED*: Not Applicable *COPY OF PRESCRIPTION DRUG MONITORING REPORT IN PATIENT JACQUELIN: Not Applicable Home Medications: Home Meds Acetaminophen [Tylenol] 650 mg PO Q6H PRN 09/18/20 [History] Ergocalciferol (Vitamin D2) [Vitamin D2] 1.25 mg PO FR@0800 09/18/20 [History] Escitalopram Oxalate [Lexapro] 10 mg PO DAILY 09/18/20 [History] Lansoprazole [Prevacid] 30 mg PO DAILY 09/18/20 [History] Levothyroxine [Synthroid] 100 mcg PO ACBREAKFAST 09/18/20 [History] amLODIPine Besylate [Amlodipine Besylate] 5 mg PO DAILY 09/18/20 [History] bisacodyL [Bisacodyl] 5 mg PO DAILY PRN 09/18/20 [History] Ciprofloxacin [Ciprofloxacin HCl] 500 mg PO BID 3 Days #6 tab 09/21/20 [Rx] - Discharge Summary/Plan Comment DC Time >30 min.: No - Review of Systems Systems Review Comment: Patient unable to answer ROS: dementia - Patient Data Vitals - Most Recent: Last Vital Signs Temp 97.8 F 09/21/20 05:27 Pulse 106 H 09/21/20 05:27 Resp 20 09/21/20 02:00 BP 134/73 09/21/20 08:10 Pulse Ox 95 09/21/20 08:00 Weight - Most Recent: 172 lb 1.6 oz I&O - Last 24 hours: Intake & Output 09/20/20 09/21/20 09/21/20 22:59 06:59 14:59 Intake Total 1220 825 Balance 1220 825 Lab Results - Last 24 hrs: Laboratory Results - last 24 hr 09/21/20 09/21/20 Range/Units 07:25 07:25 WBC 8.7 (4.0-10.0) x10^3/uL RBC 3.59 L (4.00-5.50) x10^6/uL Hgb 9.2 L (12.0-16.0) g/dL Hct 29.7 L (33.0-47.0) % MCV 82.7 (78.0-93.0) fL MCH 25.6 L (26.0-32.0) pg MCHC 31.0 L (32.0-36.0) g/dL RDW Coeff of Jazmine 16.6 H (10.0-15.0) % Plt Count 285 (130-400) x10^3/uL Neut % (Auto) 70.0 (50.0-80.0) % Lymph % (Auto) 17.6 L (25.0-50.0) % [place] % (Auto) 7.9 (2.0-11.0) % Eos % (Auto) 4.0 (0.0-4.0) % Baso % (Auto) 0.5 (0.2-1.2) % Sodium 142 (136-145) mmol/L Potassium 3.5 (3.5-5.1) mmol/L Chloride 108 H (98-107) mmol/L Carbon Dioxide 23 (21-32) mmol/L Anion Gap 14.5 (5-15) mmol/L BUN 21 H (7-18) mg/dL Creatinine 1.2 H (0.55-1.02) mg/dL Est Cr Clr Drug Dosing 27.98 mL/min Estimated GFR (MDRD) 42 Glucose 108 H (70-99) mg/dL Calcium 7.5 L (8.5-10.1) mg/dL BETH Results - Last 24 hrs: Microbiology 09/18/20 20:20 Aerobic Blood Culture - Preliminary Blood - Venous - Lab Draw NO GROWTH AFTER 2 DAYS Anaerobic Blood Culture - Preliminary NO GROWTH AFTER 2 DAYS 09/18/20 20:15 Aerobic Blood Culture - Preliminary Blood - Venous NO GROWTH AFTER 2 DAYS Anaerobic Blood Culture - Preliminary NO GROWTH AFTER 2 DAYS 09/18/20 21:01 Urine Culture - Preliminary Urine, Catheterized Gram Negative Rods Gram Positive Cocci Gram Positive Rods Med Orders - Current: Current Medications Acetaminophen (Acetaminophen 325 Mg Tab) 650 mg PO Q4H PRN PRN Reason: Pain (Mild 1-3)/fever Last Admin: 09/20/20 20:03 Dose: 650 mg Documented by: Amlodipine Besylate (Amlodipine 5 Mg Tab) 5 mg PO DAILY [facility] Last Admin: 09/21/20 08:10 Dose: 5 mg Documented by: Bisacodyl (Bisacodyl 5 Mg Tab) 5 mg PO DAILY PRN PRN Reason: Constipation Citalopram Hydrobromide (Citalopram 20 Mg Tab) 20 mg PO DAILY [facility] Last Admin: 09/21/20 08:10 Dose: 20 mg Documented by: Ergocalciferol (Ergocalciferol (Vitamin D2) 1.25 Mg Cap) 1.25 mg PO Fr@0800 [facility] Heparin Sodium (Porcine) (Heparin Sodium 5,000 Units/Ml Vial) 5,000 units SUBCUT Q8H [facility] Last Admin: 09/21/20 06:06 Dose: 5,000 units Documented by: Sodium Chloride (Normal Saline) 1,000 mls @ 100 mls/hr IV ASDIRECTED [facility] Last Admin: 09/21/20 06:09 Dose: 100 mls/hr Documented by: Piperacillin Sod/Tazobactam (Sod 3.375 gm/ Sodium Chloride) 100 mls @ 25 mls/hr IV Q8H [facility] Last Admin: 09/21/20 06:06 Dose: 25 mls/hr Documented by: Levothyroxine Sodium (Levothyroxine 100 Mcg Tab) 100 mcg PO ACBREAKFAST [facility] Last Admin: 09/21/20 06:06 Dose: 100 mcg Documented by: Ondansetron HCl (Ondansetron 4 Mg Tab.Dis) 4 mg PO Q4H PRN PRN Reason: nausea, able to take PO Pantoprazole Sodium (Pantoprazole 40 Mg Tab.Cr) 40 mg PO ACBREAKFAST [facility] Last Admin: 09/21/20 06:06 Dose: 40 mg Documented by: Sodium Chloride (Sodium Chloride 0.9% 10 Ml Syringe) 10 ml FLUSH ASDIRECTED PRN PRN Reason: Keep Vein Open Discontinued Medications Heparin Sodium (Porcine) (Heparin Sodium 5,000 Units/Ml Vial) 5,000 units SUBCUT ONETIME ONE Stop: 09/19/20 08:31 Last Admin: 09/19/20 09:55 Dose: 5,000 units Documented by: Piperacillin Sod/Tazobactam (Sod 4.5 gm/ Sodium Chloride) 100 mls @ 200 mls/hr IV Q6H [facility] Last Admin: 09/18/20 23:58 Dose: Not Given Documented by: Ciprofloxacin/Dextrose 400 mg/ (Premix) 200 mls @ 200 mls/hr IV Q24H [facility] Last Admin: 09/19/20 17:29 Dose: 200 mls/hr Documented by: Ciprofloxacin/Dextrose 400 mg/ (Premix) 200 mls @ 200 mls/hr IV ONETIME ONE Stop: 09/18/20 20:14 Last Admin: 09/18/20 19:42 Dose: 200 mls/hr Documented by: Ciprofloxacin/Dextrose (Cipro In D5w 400 Mg/200 Ml) Confirm Administered Dose 200 mls @ as directed .ROUTE .STK-MED ONE Stop: 09/18/20 19:38 Last Admin: 09/18/20 20:43 Dose: Not Given Documented by: Piperacillin Sod/Tazobactam (Sod 4.5 gm/ Sodium Chloride) 100 mls @ 25 mls/hr IV ONETIME ONE Stop: 09/19/20 00:59 Piperacillin Sod/Tazobactam (Sod 4.5 gm/ Sodium Chloride) 100 mls @ 200 mls/hr IV ONETIME ONE Stop: 09/18/20 21:29 Last Admin: 09/18/20 21:56 Dose: 200 mls/hr Documented by: Vancomycin HCl 1.5 gm/ Premix 300 mls @ 200 mls/hr IV ONETIME ONE Stop: 09/19/20 00:29 Last Admin: 09/18/20 23:51 Dose: 200 mls/hr Documented by: Vancomycin HCl (Vancomycin 1.5 Gm/300 Ml) 300 mls @ 200 mls/hr IV ONETIME ONE Stop: 09/19/20 01:44 Last Admin: 09/19/20 00:13 Dose: 200 mls/hr Documented by: Vancomycin HCl 750 mg/ Sodium (Chloride) 100 mls @ 130 mls/hr IV Q24H [facility] Last Admin: 09/19/20 19:32 Dose: 130 mls/hr Documented by: Iopamidol (Iopamidol 612 Mg/Ml 100 Ml Bottle) 100 ml IVPUSH ONETIME ONE Stop: 09/19/20 17:45 Last Admin: 09/19/20 18:41 Dose: 100 ml Documented by: - Exam General: Reports: Alert, Cooperative, No Acute Distress HEENT: Reports: EOMI, Mucous Membr. Moist/Odem Neck: Reports: Supple Lungs: Reports: Clear to Auscultation, Normal Respiratory Effort Cardiovascular: Reports: Regular Rate, Regular Rhythm GI/Abdominal Exam: Normal Bowel Sounds, Soft, Non-Tender Extremities: Normal Inspection, Non-Tender, No Pedal Edema Skin: Reports: Warm, Dry, Intact Neurological: Reports: No New Focal Deficit Psy/Mental Status: Reports: Alert, Normal Affect, Normal Mood
[2020-09-22] MEDS ORDERED: Ergocalciferol (Vitamin D2) 1.25 MG Cap PO SCH (08:00)
== END 2020-09-21 12:57 | DRG 682 ==
LOC: VM.MS 18:00
PROVIDERS: ADMIT Physician Assistant; ATTEND Family Medicine
DX: N17.9 Acute kidney failure, unspecified (principal); J18.9 Pneumonia, unspecified organism; E87.1 Hypo-osmolality and hyponatremia; N39.0 Urinary tract infection, site not specified; E87.2 Acidosis; E86.0 Dehydration; Z66 Do not resuscitate; Z20.822 Contact with and (suspected) exposure to COVID-19; I12.9 Hypertensive chronic kidney disease with stage 1 through stage 4 chronic kidney disease, or unspecified chronic kidney disease; G30.9 Alzheimer's disease, unspecified; F02.80 Dementia in other diseases classified elsewhere, unspecified severity, without behavioral disturbance, psychotic disturbance, mood disturbance, and anxiety; E03.9 Hypothyroidism, unspecified; E66.9 Obesity, unspecified; D50.9 Iron deficiency anemia, unspecified; E78.5 Hyperlipidemia, unspecified; K21.9 Gastro-esophageal reflux disease without esophagitis; N18.31 Chronic kidney disease, stage 3a; F39 Unspecified mood [affective] disorder; R53.81 Other malaise; Z79.890 Hormone replacement therapy; Z79.899 Other long term (current) drug therapy; Z68.29 Body mass index [BMI] 29.0-29.9, adult; Z99.3 Dependence on wheelchair; Z99.81 Dependence on supplemental oxygen
CPT/HCPCS: 36415; 70496; 71045; 80048; 81001; 83605; 84145; 85025; 85610; 87040; 87086; 87088; 87186; 92526-GN; 92610-GN; 94760; A9270-GY; J0744; J1644; J2543; J3370; J7030; Q9967; U0002